=== PATIENT | female | born 1995 | race Caucasian/White ===

== ENCOUNTER 2017-10-01 09:50 | Emergency (ER) | payer OTHER ==
[~2017-10-01] VITALS: Ht 172.7 cm; Wt 74.8 kg
[2017-10-01 10:24] LABS: ABSOLUTE EOSINOPHILS 0.1 thou/uL (0.0-0.7); ABSOLUTE LYMPHOCYTES 1.2 thou/uL (0.8-5.3); ABSOLUTE MONOCYTES 0.6 thou/uL (0.0-1.2); ABSOLUTE NEUTROPHILS 4.4 thou/uL (1.6-8.1); BASOPHILS 0.6 %; EOSINOPHILS 1.5 %; HEMATOCRIT 40.7 % (37.0-47.0); HEMOGLOBIN 13.9 gm/dL (12.0-15.0); LYMPHOCYTES 19.6 %; MCH 31.4 pg (26.0-34.0); MCHC 34.2 g/dL (28.0-37.0); MCV 92.1 fL (80.0-100.0); MONOCYTES 8.9 %; MPV 8.6 fl. (7.2-11.1); NUCLEATED RBCS 0 /100WBC; PLATELET COUNT* 222 thou/uL (150-400); POLYS 69.4 %; RBC 4.42 mil/uL (4.20-5.00); RDW-CV 12.6 % (10.5-14.5); WBC 6.3 thou/uL (4.0-11.0)
[2017-10-01 10:25] LABS: URINE BILIRUBIN NEGATIVE (Negative); URINE BLOOD 3+ (Negative); URINE CLARITY CLOUDY; URINE COLOR RED; URINE GLUCOSE-RANDOM NEGATIVE (Negative); URINE KETONES 1+ (Negative); URINE LEUKOCYTES-REFLEX TRACE (Negative); URINE NITRITE-REFLEX NEGATIVE (Negative); URINE PROTEIN 3+ (Negative); URINE SPECIFIC GRAVITY >= 1.030 (1.005-1.030); URINE UROBILINOGEN 0.2 E.U./dl (0.2-1.0)
[2017-10-01 10:28] LABS: BACTERIA-REFLEX 1-9 Few /HPF (None Seen); CASTS None Seen /LPF (None Seen); CRYSTALS None Seen /LPF (None Seen); MUCUS None Seen strn/LPF (None Seen); SQUAMOUS 4-10 Moderate /LPF (0-3); URINE RBC >20 Many /HPF (0-2); URINE WBC-REFLEX 6-15 Few /HPF (0-5)
[2017-10-01 10:30] LABS: CALCIUM 8.9 mg/dL (8.5-10.1); CREATININE 0.8 mg/dL (0.6-1.3); POTASSIUM 3.4 mmol/L (3.5-5.1)
[2017-10-01 10:35] LABS: ALBUMIN 4.1 g/dL (3.4-5.0); TOTAL BILIRUBIN 1.1 mg/dL (<0.1-1.0); TOTAL PROTEIN 7.8 g/dL (6.4-8.2)
[2017-10-01] MEDS ORDERED: MACROBID 100 M100 M1 PO (12:28)
[2017-10-01 12:50] VITALS: BP 107/76
== END 2017-10-01 12:27 | disposition home or self-care (01) ==
LOC: M.ERS 09:50
PROVIDERS: Nurse Practitioner Family
DX: O20.0 Threatened abortion (principal); O23.41 Unspecified infection of urinary tract in pregnancy, first trimester; Z3A.00 Weeks of gestation of pregnancy not specified

== ENCOUNTER 2017-10-05 13:12 | Emergency (ER) | payer OTHER ==
[~2017-10-05] VITALS: Ht 170.2 cm; Wt 72.6 kg
[~2017-10-05 13:12] MED LIST: MACROBID 100 M100 M1 PO
[2017-10-05 14:25] VITALS: BP 119/73
== END 2017-10-05 14:26 | disposition home or self-care (01) ==
LOC: M.ERS 13:12
DX: O20.0 Threatened abortion (principal); Z3A.00 Weeks of gestation of pregnancy not specified

== ENCOUNTER 2017-10-18 09:10 | Emergency (ER) | payer OTHER ==
[~2017-10-18] VITALS: Ht 170.2 cm; Wt 72.6 kg
--- NOTE | ~2017-10-18 | OP ---
[address] [address] OPERATIVE REPORT Name: GOKUL DEGROOT [id number] Admission: 10/18/17 Attend Phys: Discharge: 10/18/17 Date of : [birth year] Report #: [id number] THIS REPORT FOR: //name// Please see the post operative note for details of the operative report. By: 1024Medical Records Staff JAMI /MACHELLE
[2017-10-18] MEDS ORDERED: IBUPROFEN 800800 M1 PO (09:25)
[2017-10-18 09:49] LABS: URINE BILIRUBIN NEGATIVE (Negative); URINE BLOOD 3+ (Negative); URINE CLARITY CLEAR; URINE COLOR YELLOW; URINE GLUCOSE-RANDOM NEGATIVE (Negative); URINE KETONES TRACE (Negative); URINE LEUKOCYTES-REFLEX NEGATIVE (Negative); URINE NITRITE-REFLEX NEGATIVE (Negative); URINE PROTEIN 1+ (Negative); URINE SPECIFIC GRAVITY 1.025 (1.005-1.030); URINE UROBILINOGEN 0.2 E.U./dl (0.2-1.0)
[2017-10-18 09:55] LABS: SQUAMOUS 0-3 Few /LPF (0-3)
[2017-10-18 09:56] LABS: BACTERIA-REFLEX 1-9 Few /HPF (None Seen); CASTS None Seen /LPF (None Seen); CRYSTALS None Seen /LPF (None Seen); MUCUS None Seen strn/LPF (None Seen); URINE RBC 3-10 Few /HPF (0-2); URINE WBC-REFLEX 0-5 Rare /HPF (0-5)
[2017-10-18 12:05] LABS: ABSOLUTE EOSINOPHILS 0.1 thou/uL (0.0-0.7); ABSOLUTE LYMPHOCYTES 1.1 thou/uL (0.8-5.3); ABSOLUTE MONOCYTES 0.4 thou/uL (0.0-1.2); BASOPHILS 0.6 %; HEMATOCRIT 36.6 % (37.0-47.0); HEMOGLOBIN 12.5 gm/dL (12.0-15.0); LYMPHOCYTES 17.1 %; MCH 31.4 pg (26.0-34.0); MCHC 34.2 g/dL (28.0-37.0); MCV 91.8 fL (80.0-100.0); MONOCYTES 5.4 %; NUCLEATED RBCS 0 /100WBC; PLATELET COUNT* 311 thou/uL (150-400); POLYS 75.9 %; RBC 3.99 mil/uL (4.20-5.00); RDW-CV 12.5 % (10.5-14.5); WBC 6.6 thou/uL (4.0-11.0)
[2017-10-18 12:08] LABS: CREATININE 0.6 mg/dL (0.6-1.3); POTASSIUM 4.1 mmol/L (3.5-5.1)
[2017-10-18 12:13] LABS: ALBUMIN 3.9 g/dL (3.4-5.0); TOTAL BILIRUBIN 1.5 mg/dL (<0.1-1.0); TOTAL PROTEIN 7.2 g/dL (6.4-8.2)
[2017-10-18 18:57] VITALS: BP 108/67
[2017-10-18] MEDS ORDERED: NORCO 5-325 TA1 EACH PO (19:13)
--- NOTE | 2017-10-21 09:27 | S ---
[address] [address] SURGICAL PATH RPT PROCEDURE Name: VIRGINIA DEGROOT Room: [facility]#: [id number] Admission: 10/18/17 Date of : [birth year] Discharge: 10/18/17 Report #: [id number] Path Case #: [id number] PATHOLOGY REPORT COLLECTION DATE: 10/19/2017 RECEIVED DATE: 10/19/2017 SUBMITTING PHYS: Dr. Jacob Cruz OTHER PHYS: SPECIMEN(S) RECEIVED: A.Fallopian tube contents * * * * * * * * * * * * FINAL DIAGNOSIS: Fallopian tube contents: - Blood clot and minute fragment of benign fallopian tubal tissue, without chorionic villi or embryonal tissue identified. (ELIZABETH:pit; 10/20/2017) PATHOLOGIST: Bam Bhakta M.D. REPORT ELECTRONICALLY SIGNED BY: Bam Bhakta M.D. DATE/TIME: 10/21/2017 09:27 * * * * * * * * * * * * GROSS PATHOLOGY: Received in formalin labeled "[place], fallopian tube contents" and consists of a 1.5 x 1.0 x 0.6 cm aggregate of blood clot. No other tissue is identified. The specimen is entirely submitted in A1-A2 for serial, multiple step sections. (ERIN; 10/19/2017) CLINICAL HISTORY: Ectopic INITIAL CPT CODE(S): A; 46118 Professional services performed by [facility] at [address], [place] [address] Technical services performed by [facility] at [address] [place] [address], [address], [place] [address]. [facility] [address] [address] SURGICAL PATH RPT PROCEDURE Name: VIRGINIA DEGROOT Room: [facility] Pepe#: [id number] Admission: 10/18/17 Date of : [birth year] Discharge: 10/18/17 Report #: [id number] Path Case #: [id number] [address] PHONE: [phone] DIRECTOR: Orestes Key M.D. * * * END OF REPORT * * *
== END 2017-10-18 16:23 | disposition still patient (30) ==
LOC: M.ERS 09:10
PROVIDERS: Personal Emergency Response Attendant
DX: O00.90 Unspecified ectopic pregnancy without intrauterine pregnancy (principal); Z3A.00 Weeks of gestation of pregnancy not specified

== ENCOUNTER → 2017-10-26 | Outpatient (CLI) | payer OTHER ==
[~2017-10-26] MED LIST changes: +IBUPROFEN 800800 M1 PO; +NORCO 5-325 TA1 EACH PO; +XULANE PATCH1 EACH; +ZOFRAN ODT4 MG PO
== END ==
LOC: M.LAB 15:01
DX: O00.202 Left ovarian pregnancy without intrauterine pregnancy (principal)

== ENCOUNTER → 2017-11-02 | Outpatient (CLI) | payer OTHER | LOC: M.LAB 11:38 | DX: O00.102 Left tubal pregnancy without intrauterine pregnancy (principal); K66.1 Hemoperitoneum; Z3A.00 Weeks of gestation of pregnancy not specified ==

== ENCOUNTER 2018-02-28 10:27 | Emergency (ER) | payer OTHER ==
[~2018-02-28] VITALS: Ht 172.7 cm; Wt 70.3 kg
[~2018-02-28 10:27] MED LIST changes: -XULANE PATCH1 EACH; -ZOFRAN ODT4 MG PO
[2018-02-28] MEDS ORDERED: XULANE PATCH1 EACH (10:42)
[2018-02-28 11:14] LABS: URINE BILIRUBIN NEGATIVE (Negative); URINE BLOOD NEGATIVE (Negative); URINE CLARITY CLEAR; URINE COLOR YELLOW; URINE GLUCOSE-RANDOM NEGATIVE (Negative); URINE KETONES 2+ (Negative); URINE LEUKOCYTES-REFLEX 1+ (Negative); URINE NITRITE-REFLEX NEGATIVE (Negative); URINE PROTEIN NEGATIVE (Negative); URINE SPECIFIC GRAVITY 1.025 (1.005-1.030); URINE UROBILINOGEN 0.2 E.U./dl (0.2-1.0)
[2018-02-28 11:19] LABS: BACTERIA-REFLEX None Seen /HPF (None Seen); CASTS None Seen /LPF (None Seen); CRYSTALS None Seen /LPF (None Seen); MUCUS 0-3 Light strn/LPF (None Seen); SQUAMOUS >10 Many /LPF (0-3); URINE RBC None Seen /HPF (0-2); URINE WBC-REFLEX 0-5 Rare /HPF (0-5)
[2018-02-28 11:25] LABS: ABSOLUTE EOSINOPHILS 0.1 thou/uL (0.0-0.7); ABSOLUTE MONOCYTES 0.4 thou/uL (0.0-1.2); BASOPHILS 0.6 %; EOSINOPHILS 1.1 %; HEMATOCRIT 36.8 % (37.0-47.0); HEMOGLOBIN 12.5 gm/dL (12.0-15.0); LYMPHOCYTES 14.8 %; MCH 31.1 pg (26.0-34.0); MCHC 33.9 g/dL (28.0-37.0); MCV 91.7 fL (80.0-100.0); MONOCYTES 5.9 %; MPV 8.6 fl. (7.2-11.1); NUCLEATED RBCS 0 /100WBC; PLATELET COUNT* 221 thou/uL (150-400); POLYS 77.6 %; RBC 4.01 mil/uL (4.20-5.00); RDW-CV 12.5 % (10.5-14.5); WBC 6.4 thou/uL (4.0-11.0)
[2018-02-28 11:30] LABS: CALCIUM 9.1 mg/dL (8.5-10.1); CREATININE 0.6 mg/dL (0.6-1.3); POTASSIUM 3.9 mmol/L (3.5-5.1)
[2018-02-28] MEDS ORDERED: ZOFRAN ODT4 MG PO (11:33)
[2018-02-28 11:35] LABS: ALBUMIN 3.6 g/dL (3.4-5.0); TOTAL BILIRUBIN 1.3 mg/dL (<0.1-1.0); TOTAL PROTEIN 7.5 g/dL (6.4-8.2)
[2018-02-28 11:50] VITALS: BP 128/79
== END 2018-02-28 11:51 | disposition home or self-care (01) ==
LOC: M.ERS 10:27
PROVIDERS: Physician Assistant
DX: R11.2 Nausea with vomiting, unspecified (principal)